=== PATIENT | female | born 1945 | race Caucasian/White ===

== ENCOUNTER 2016-12-02 20:27 | Emergency (ER) | payer OTHER ==
[2016-12-02] MEDS ORDERED: G.I. COCKTAIL PO ONE (20:54)
--- NOTE | 2016-12-02 20:59 | PROVIDER DOCUMENTATION ---
HPI-Chest Pain <Jeff Nielson - Last Filed: 12/02/16 22:09> - General Source: patient - History of Present Illness-CP Location: reports: substernal Chest Pain Radiation: reports: no radiation Quality of Pain: reports: aching, burning, dull Severity in ED: moderate Onset/Duration: this morning (0730) Timing: still present, constant Context/Activities at Onset: reports: moderate activity Associated Symptoms: reports: abdominal pain, heartburn. denies: back pain, diaphoresis, fatigue, headache, nausea, rash, shortness of breath, swelling/ lump in chest, syncope, vomiting, weakness <Migel Brower - Last Filed: 12/02/16 22:24> - General Chief Complaint: Chest Pain Stated Complaint: BURNING AND CHOKING SENSATION IN THROAT Time Seen by Provider: 12/02/16 20:38 Allergies/Adverse Reactions: Patient Allergies Allergy/AdvReac Type Severity Reaction Status Date / Time garlic Allergy RASH Verified 12/02/16 21:02 Sulfa (Sulfonamide Allergy RASH Verified 12/02/16 21:02 Antibiotics) Home Medications: Home Medication List Medication Instructions Recorded Confirmed Last Taken Type ATORVAstatin [Lipitor] 80 mg PO DAILY 12/02/16 12/02/16 12/02/16 History Buspirone HCl [Buspar] 5 mg PO BID 12/02/16 12/02/16 Unknown History Calcium Carbonate [Caltrate 600] 600 mg PO DAILY 12/02/16 12/02/16 Unknown History Chlorthalidone 25 mg PO DIRECTED 12/02/16 12/02/16 Unknown History Diltiazem [Cardizem] 30 mg PO BID 12/02/16 12/02/16 Unknown History Famotidine [Pepcid] 20 mg PO DAILY 12/02/16 12/02/16 12/02/16 History Losartan Potassium 50 mg PO DAILY 12/02/16 12/02/16 12/02/16 History [place]-3 Fatty Acids [Fish Oil] 300 mg PO DAILY 12/02/16 12/02/16 Unknown History Omeprazole 40 mg PO DAILY 12/02/16 12/02/16 12/02/16 History Vitamin E 1,000 unit PO DAILY 12/02/16 12/02/16 Unknown History - History of Present Illness-CP Nature of Presenting Problem: Pt is a 71 yof who presents to ER with CC of C/P with onset of 0730 this am. Pt describes pain as a dull/achy/burning sensation in her chest and makes her feel as though she has something stuck in her throat. Pt does report hx of GERD and said that she took x2 pepsid and x1 of prilosec without result. Pt denies any pain radiating anywhere else, denies N/V/D/cough/ or sob. Pt reports that she did have slight sob yesterday after exercising. Pt also reports that she has mildly swollen bilateral feet/ankles, but is normal for her and has not changed from baseline. (Migel Brower) Review of Systems - Adult - REVIEW OF SYSTEMS - ADULT Constitutional: denies: chills, fever, fatique, night sweats Eyes: reports: no symptoms reported Ears, Nose, Mouth & Throat: reports: no symptoms reported Cardiovascular: reports: chest pain, irregular heart rate (possible), palpitations (possible). denies: edema, heart murmur, orthopnea, poor circulation, PND, syncope Respiratory: reports: shortness of breath (yesterday; none today). denies: chronic cough, cough, dyspnea on exertion, excessive sputum production, hemoptysis, pleurisy, wheezing Gastrointestinal: reports: difficulty swallowing, frequent heartburn. denies: abdominal pain, hematemesis, constipation, diarrhea, nausea, poor appetite, rectal bleeding, vomiting Genitourinary: denies: dysuria, flank pain, frequent UTI's, hematuria, incontinence Musculoskeletal: reports: no symptoms reported Integumentary: reports: no symptoms reported Neurological: reports: no symptoms reported Psychiatric: reports: no symptoms reported Endocrine: reports: no symptoms reported Hematologic/Lymphatic: reports: no symptoms reported Allergic/Immunologic: reports: no symptoms reported All Other Systems: Reviewed and Negative <Migel Brower - Last Filed: 12/02/16 22:24> Past History - Adult - PAST MEDICAL HISTORY-ADULT Review of Records: reports: Nursing Assessment Review, Medications Reviewed Cardiovascular: reports: HTN, palpitations Gastrointestinal: reports: GERD - PRIOR SURGERIES/PROCEDURES Surgical/Procedure History: reports: hysterectomy, - IMMUNIZATION STATUS Childhood Immunizations: See Nurse Assessment Flu Vaccine: See Nurse Assessment <Migel Brower - Last Filed: 12/02/16 22:24> Physical Exam-General - PHYSICAL EXAM-ADULT Initial Vital Signs Reviewed: Yes - CONSTITUTIONAL General Appearance: appears well, alert, no apparent distress. negative: cachetic, obese, anxious, lethargic, slow to respond, obtunded, combative - RESPIRATORY Respiratory: chest non-tender, lungs clear, normal breath sounds. negative: respiratory distress, decreased breath sounds, accessory muscle use, crackles, rales, rhonchi, stridor, wheezing - CARDIOVASCULAR Cardiovascular: normal peripheral pulses, regular rate, rhythm. negative: bradycardia, tachycardia, irregularly irregular - GASTROINTESTINAL (ABDOMEN) Abdominal Exam: normal bowel sounds, non tender, soft. negative: abnormal bowel sounds, distended, guarding, rigid, rebound, tenderness, mass - SKIN Integumentary: normal color, normal turgor, warm/dry. negative: diaphoresis, ecchymosis, erythema, laceration(s), swelling, tenderness, warm - NEUROLOGIC Neurologic: grossly normal, no motor/sensory deficits - PSYCHIATRIC Psych/Mental Status: normal mood/affect, normal thought content, normal thought process, oriented x 3 <Migel Brower - Last Filed: 12/02/16 22:24> Progress - REASSESSMENT Reassessment #1 Time Reassessed: 22:09 (pain free after GI cocktail) Status: improving <Jeff Nielson - Last Filed: 12/02/16 22:09> - EKG 1 Time of EKG reading by physician:: 20:34 EKG Read and Signed by:: Jeff Nielson EKG Interpretation (*Must complete 3 of following elements*): Normal Rate: 76 Rhythm: Normal sinus rhythm <Migel Brower - Last Filed: 12/02/16 22:24> - PLAN OF CARE/RESULTS Progress/Plan/Lab Results: Laboratory Tests 12/02/16 12/02/16 12/02/16 21:15 21:15 21:15 WBC 4.80 RBC 3.74 L Hgb 11.7 L Hct 34.4 L MCV 92.0 MCH 31.3 H MCHC 34.0 RDW Std Deviation 12.7 Plt Count 189 MPV 10.3 Immature Gran % (Auto) 0.0 Neut % (Auto) 45.9 Lymph % (Auto) 40.8 [place] % (Auto) 10.6 H Eos % (Auto) 2.1 Baso % (Auto) 0.6 Immature Gran # (Auto) 0.00 Neut # (Auto) 2.20 Lymph # (Auto) 1.96 [place] # (Auto) 0.51 Eos # (Auto) 0.10 Baso # (Auto) 0.03 PT INR PTT (Actin FS) Sodium 140 Potassium 3.6 Chloride 101 Carbon Dioxide 25 Anion Gap 14 BUN 21 Creatinine 1.1 H Estimated GFR/1.73 m2 49 BUN/Creatinine Ratio 19 Glucose 99 Calculated Osmolality 282 Calcium 9.0 Magnesium 1.8 Total Bilirubin 0.34 AST 16 ALT 14 Alkaline Phosphatase 50 Creatine Kinase 81 Troponin T Eut-J-Fzhdfxnlbzh Pept 52 Total Protein 6.5 Albumin 4.0 Globulin 2.5 Albumin/Globulin Ratio 1.6 12/02/16 12/02/16 21:15 21:15 WBC RBC Hgb Hct MCV MCH MCHC RDW Std Deviation Plt Count MPV Immature Gran % (Auto) Neut % (Auto) Lymph % (Auto) [place] % (Auto) Eos % (Auto) Baso % (Auto) Immature Gran # (Auto) Neut # (Auto) Lymph # (Auto) [place] # (Auto) Eos # (Auto) Baso # (Auto) PT 10.4 INR 0.98 PTT (Actin FS) 25.8 Sodium Potassium Chloride Carbon Dioxide Anion Gap BUN Creatinine Estimated GFR/1.73 m2 BUN/Creatinine Ratio Glucose Calculated Osmolality Calcium Magnesium Total Bilirubin AST ALT Alkaline Phosphatase Creatine Kinase Troponin T < 0.010 Pea-V-Piqrbmrwhzl Pept Total Protein Albumin Globulin Albumin/Globulin Ratio Orders Category Date Time Status CBC WITH ELECTRONIC DIFF [HEME] Stat Lab 12/02/16 21:15 Completed CK PROFILE [SP CHEM] Stat Lab 12/02/16 21:15 Completed COMPREHENSIVE METABOLIC PANEL [CHEM] Stat Lab 12/02/16 21:15 Completed D-DIMER [CHEM] Stat Lab 12/02/16 21:15 Received MAGNESIUM [CHEM] Stat Lab 12/02/16 21:15 Completed PRO B-NATRIURETIC PEPTIDE Stat Lab 12/02/16 21:15 Completed PROTIME WITH INR [COAG] Stat Lab 12/02/16 21:15 Completed PTT [COAG] Stat Lab 12/02/16 21:15 Completed TROPONIN T Stat Lab 12/02/16 21:15 Completed [place] Alk/Al&mg Hydrox [G.i. Cocktail] Med 12/02/16 20:54 Discontinued 30 ml PO NOW ONE EKG [EKG] Stat Ther 12/02/16 20:29 Ordered Vital Signs Temp Pulse Resp BP Pulse Ox 12/02/16 20:36 98.3 F 74 18 150/63 99 garlic Allergy (Verified 12/02/16 21:02) RASH Sulfa (Sulfonamide Antibiotics) Allergy (Verified 12/02/16 21:02) RASH ATORVAstatin [Lipitor] 80 mg PO DAILY 12/02/16 Buspirone HCl [Buspar] 5 mg PO BID 12/02/16 Calcium Carbonate [Caltrate 600] 600 mg PO DAILY 12/02/16 Chlorthalidone 25 mg PO DIRECTED 12/02/16 Diltiazem [Cardizem] 30 mg PO BID 12/02/16 Famotidine [Pepcid] 20 mg PO DAILY 12/02/16 Losartan Potassium 50 mg PO DAILY 12/02/16 [place]-3 Fatty Acids [Fish Oil] 300 mg PO DAILY 12/02/16 Omeprazole 40 mg PO DAILY 12/02/16 Vitamin E 1,000 unit PO DAILY 12/02/16 Laboratory 12/02/16 12/02/16 12/02/16 21:15 21:15 21:15 WBC RBC Hgb Hct MCV MCH MCHC RDW Std Deviation Plt Count MPV Immature Gran % (Auto) Neut % (Auto) Lymph % (Auto) [place] % (Auto) Eos % (Auto) Baso % (Auto) Immature Gran # (Auto) Neut # (Auto) Lymph # (Auto) [place] # (Auto) Eos # (Auto) Baso # (Auto) PT 10.4 INR 0.98 PTT (Actin FS) 25.8 Sodium Potassium Chloride Carbon Dioxide Anion Gap BUN Creatinine Estimated GFR/1.73 m2 BUN/Creatinine Ratio Glucose Calculated Osmolality Calcium Magnesium Total Bilirubin AST ALT Alkaline Phosphatase Creatine Kinase Troponin T < 0.010 Pan-L-Cexpischvhf Pept 52 Total Protein Albumin Globulin Albumin/Globulin Ratio 12/02/16 12/02/16 21:15 21:15 WBC 4.80 RBC 3.74 L Hgb 11.7 L Hct 34.4 L MCV 92.0 MCH 31.3 H MCHC 34.0 RDW Std Deviation 12.7 Plt Count 189 MPV 10.3 Immature Gran % (Auto) 0.0 Neut % (Auto) 45.9 Lymph % (Auto) 40.8 [place] % (Auto) 10.6 H Eos % (Auto) 2.1 Baso % (Auto) 0.6 Immature Gran # (Auto) 0.00 Neut # (Auto) 2.20 Lymph # (Auto) 1.96 [place] # (Auto) 0.51 Eos # (Auto) 0.10 Baso # (Auto) 0.03 PT INR PTT (Actin FS) Sodium 140 Potassium 3.6 Chloride 101 Carbon Dioxide 25 Anion Gap 14 BUN 21 Creatinine 1.1 H Estimated GFR/1.73 m2 49 BUN/Creatinine Ratio 19 Glucose 99 Calculated Osmolality 282 Calcium 9.0 Magnesium 1.8 Total Bilirubin 0.34 AST 16 ALT 14 Alkaline Phosphatase 50 Creatine Kinase 81 Troponin T Xjf-B-Ksxcihcrbyv Pept Total Protein 6.5 Albumin 4.0 Globulin 2.5 Albumin/Globulin Ratio 1.6 (Jeff Nielson) POC: Blood work/ Chest X-ray/ GI cocktail Vital Signs - 24 hr 12/02/16 12/02/16 20:36 22:22 Temperature 98.3 F Pulse Rate 74 61 Respiratory 18 18 Rate Blood Pressure 150/63 133/62 O2 Sat by Pulse 99 100 Oximetry Orders Category Date Time Status CBC WITH ELECTRONIC DIFF [HEME] Stat Lab 12/02/16 21:15 Completed CK PROFILE [SP CHEM] Stat Lab 12/02/16 21:15 Completed COMPREHENSIVE METABOLIC PANEL [CHEM] Stat Lab 12/02/16 21:15 Completed D-DIMER [CHEM] Stat Lab 12/02/16 21:15 Received MAGNESIUM [CHEM] Stat Lab 12/02/16 21:15 Completed PRO B-NATRIURETIC PEPTIDE Stat Lab 12/02/16 21:15 Completed PROTIME WITH INR [COAG] Stat Lab 12/02/16 21:15 Completed PTT [COAG] Stat Lab 12/02/16 21:15 Completed TROPONIN T Stat Lab 12/02/16 21:15 Completed [place] Alk/Al&mg Hydrox [G.i. Cocktail] Med 12/02/16 20:54 Discontinued 30 ml PO NOW ONE EKG [EKG] Stat Ther 12/02/16 20:29 Ordered Laboratory Tests 12/02/16 12/02/16 12/02/16 21:15 21:15 21:15 WBC 4.80 RBC 3.74 L Hgb 11.7 L Hct 34.4 L MCV 92.0 MCH 31.3 H MCHC 34.0 RDW Std Deviation 12.7 Plt Count 189 MPV 10.3 Immature Gran % (Auto) 0.0 Neut % (Auto) 45.9 Lymph % (Auto) 40.8 [place] % (Auto) 10.6 H Eos % (Auto) 2.1 Baso % (Auto) 0.6 Immature Gran # (Auto) 0.00 Neut # (Auto) 2.20 Lymph # (Auto) 1.96 [place] # (Auto) 0.51 Eos # (Auto) 0.10 Baso # (Auto) 0.03 PT INR PTT (Actin FS) Sodium 140 Potassium 3.6 Chloride 101 Carbon Dioxide 25 Anion Gap 14 BUN 21 Creatinine 1.1 H Estimated GFR/1.73 m2 49 BUN/Creatinine Ratio 19 Glucose 99 Calculated Osmolality 282 Calcium 9.0 Magnesium 1.8 Total Bilirubin 0.34 AST 16 ALT 14 Alkaline Phosphatase 50 Creatine Kinase 81 Troponin T Xtf-G-Jzxpnunmjej Pept 52 Total Protein 6.5 Albumin 4.0 Globulin 2.5 Albumin/Globulin Ratio 1.6 12/02/16 12/02/16 21:15 21:15 WBC RBC Hgb Hct MCV MCH MCHC RDW Std Deviation Plt Count MPV Immature Gran % (Auto) Neut % (Auto) Lymph % (Auto) [place] % (Auto) Eos % (Auto) Baso % (Auto) Immature Gran # (Auto) Neut # (Auto) Lymph # (Auto) [place] # (Auto) Eos # (Auto) Baso # (Auto) PT 10.4 INR 0.98 PTT (Actin FS) 25.8 Sodium Potassium Chloride Carbon Dioxide Anion Gap BUN Creatinine Estimated GFR/1.73 m2 BUN/Creatinine Ratio Glucose Calculated Osmolality Calcium Magnesium Total Bilirubin AST ALT Alkaline Phosphatase Creatine Kinase Troponin T < 0.010 Fjf-J-Wslicmcfofl Pept Total Protein Albumin Globulin Albumin/Globulin Ratio (Migel Brower) Departure - Departure Time of Disposition Order: 22:10 <Jeff Nielson - Last Filed: 12/02/16 22:09> - Departure Time of Disposition Order: 22:24 Certified Medical Emergency: Emergent <Migel Brower - Last Filed: 12/02/16 22:24> - Departure DIAGNOSIS: GERD (gastroesophageal reflux disease) Qualifiers: Esophagitis presence: esophagitis presence not specified Qualified Code(s): K21.9 - Gastro-esophageal reflux disease without esophagitis Disposition: OTHER 70 Condition: Good Additional Instructions: ED Follow Up Instructions: You have been treated by a care provider in the Emergency Department. These instructions are being provided to you so you can have an understanding of how to care for yourself upon discharge. Upon discharge from the Emergency Department, you are responsible for making arrangements for follow-up care by a physician of your choice. Take all prescribed medications as directed. Return to the Emergency Department immediately for any new or worsening symptoms. You may call the Physician Referral phone number at [phone] to obtain a list of Physicians who are taking new patients. Referrals: Gm Arias MD [Primary Care Provider] - Instructions: Heartburn, Suwe-cy-Asix Attestation - Scribe Verification/Attestation Scribe:: Migel Brower Acting as Scribe for:: Jeff Nielson Scribe documention review:: This chart was documented by a scribe and accurately reflects the service the provider performed and the decisions made by the provider. <Migel Brower - Last Filed: 12/02/16 22:24> Physician Attestation
[2016-12-02 21:33] LABS: MANUAL DIFF NEEDED? NO
[2016-12-02 21:40] LABS: BASO% 0.6 % (0.0-0.8); EOS% 2.1 % (0.0-10.0); HEMATOCRIT 34.4 % (37.0-47.0); HEMOGLOBIN 11.7 g/dL (12.0-16.0); LYMPH# 1.96 X1000 (1.2-3.4); LYMPH% 40.8 % (20.5-51.1); MCH 31.3 PG (27-31); MONO# 0.51 X1000 (0.11-0.59); MONO% 10.6 % (1.7-9.3); MPV 10.3 FL (7.4-10.4); NEUT% 45.9 % (42.2-75.2); PLT 189 X1000 (130-400); RBC 3.74 XMIL (4.2-5.4)
[2016-12-02 21:55] LABS: MAGNESIUM 1.8 mg/dL (1.5-2.7); POTASSIUM 3.6 mmol/L (3.5-5.1); TOTAL BILIRUBIN 0.34 mg/dL (0.20-1.00); TOTAL PROTEIN 6.5 g/dL (6.3-8.3)
[2016-12-02 22:06] LABS: INR 0.98; PROTIME 10.4 Seconds (9.2-11.7); PTT 25.8 Seconds (22.0-36.0)
[2016-12-02 22:23] VITALS: BP 133/62
--- NOTE | 2016-12-05 08:13 | EKG Report ---
Test Performed on : 12/02/2016 8:34:43 PM Test Reason : CP Blood Pressure : / mmHG Vent. Rate : 076 BPM Atrial Rate : 076 BPM P-R Int : 188 ms QRS Dur : 098 ms QT Int : 392 ms P-R-T Axes : 074 004 070 degrees QTc Int : 441 ms Normal sinus rhythm. Normal ECG When compared with ECG of 28-FEB-2015 21:45, Vent. rate has decreased BY 42 BPM Nonspecific T wave abnormality now evident in Anterior leads Unconfirmed Result
== END 2016-12-02 22:24 | disposition home or self-care (01) ==
LOC: ED 20:27
DX: K21.9 Gastro-esophageal reflux disease without esophagitis (principal); R07.89 Other chest pain; R10.9 Unspecified abdominal pain; R12 Heartburn; R09.89 Other specified symptoms and signs involving the circulatory and respiratory systems; R06.02 Shortness of breath; R13.10 Dysphagia, unspecified; I10 Essential (primary) hypertension; Z79.899 Other long term (current) drug therapy
CPT/HCPCS: 80053; 82550; 83735; 83880; 84484; 85025; 85379; 85610; 85730; 93005

== ENCOUNTER 2019-12-31 07:39 | Inpatient (IN) ==
[2019-12-31] MEDS ORDERED: ASPIRIN PO ONE (07:52)
[2019-12-31] MEDS ORDERED: CARDIZEM IV ONE ×2 (07:52→09:29)
--- NOTE | 2019-12-31 08:17 | EKG Report ---
Test Performed on : 12/31/2019 07:49:19 AM Test Reason : palp Blood Pressure : / mmHG Vent. Rate : 165 BPM Atrial Rate : 187 BPM P-R Int : 000 ms QRS Dur : 088 ms QT Int : 290 ms P-R-T Axes : 000 038 078 degrees QTc Int : 480 ms Atrial fibrillation. with rapid ventricular response. Nonspecific ST abnormality Abnormal ECG When compared with ECG of 02-DEC-2016 20:34, Atrial fibrillation. has replaced Sinus rhythm. Vent. rate has increased BY [address] now depressed in Anterior leads T wave inversion now evident in Anterolateral leads Unconfirmed Result
[2019-12-31] MEDS ORDERED: LOVENOX 1 MG/KG SUBQ ONE (08:20)
--- NOTE | 2019-12-31 08:21 | Diag Imaging Result Doc PS360 ---
CHEST-PORTABLE - 12/31/2019 INDICATION: sob COMPARISON: None FINDINGS: The lungs are normally expanded and clear. Heart size and mediastinal contours are normal. No pneumothorax or pleural effusion. IMPRESSION: Negative exam. Electronically signed by Jasson Levin 12/31/2019 8:19 AM
--- NOTE | 2019-12-31 08:23 | PROVIDER DOCUMENTATION ---
HPI-Cardiac General - General Chief Complaint: Palpitations Stated Complaint: HIGH HEART RATE Time Seen by Provider: 12/31/19 07:46 Allergies/Adverse Reactions: Patient Allergies Allergy/AdvReac Type Severity Reaction Status Date / Time garlic Allergy RASH Verified 12/31/19 08:25 lisinopril Allergy DRY COUGH Verified 12/31/19 08:25 Sulfa (Sulfonamide Allergy RASH Verified 12/31/19 08:25 Antibiotics) Home Medications: Home Medication List Medication Instructions Recorded Confirmed Last Taken Type ATORVAstatin [Lipitor] 80 mg PO DAILY 12/02/16 12/31/19 12/30/19 History Buspirone HCl [Buspar] 5 mg PO BID 12/02/16 12/31/19 12/30/19 History Calcium Carbonate [Caltrate 600] 600 mg PO DAILY 12/02/16 12/31/19 12/30/19 History Losartan Potassium 50 mg PO DAILY 12/02/16 12/31/19 12/30/19 History [place]-3 Fatty Acids [Fish Oil] 4 cap PO DAILY 12/02/16 12/31/19 12/30/19 History Omeprazole 40 mg PO DAILY 12/02/16 12/31/19 12/30/19 History Vitamin E 400 unit PO DIRECTED 12/02/16 12/31/19 12/30/19 History Ciprofloxacin HCl [Cipro] 1 tab PO BID 12/31/19 12/31/19 12/30/19 History Cyanocobalamin (Vitamin B-12) 1,000 mg pe PO DAILY 12/31/19 12/31/19 12/30/19 History [Vitamin B12] Diltiazem HCl [Dilt-Xr] 1 cap PO DAILY 12/31/19 12/31/19 12/30/19 History Metoprolol Succinate 1 tab PO DAILY 12/31/19 12/31/19 12/30/19 History Metronidazole [Flagyl] 1 tab PO BID 12/31/19 12/31/19 12/30/19 History Spironolact/Hydrochlorothiazid 1 tab PO DAILY 12/31/19 12/31/19 12/30/19 History [Spironolactone-Hctz 25-25 Tab] - History of Present Illness-Cardiac Nature of Presenting Problem: 74 yo female, history of palpitations, but no diagnosis of AFIB, sees Dr. Figueroa, recently seen by him and had diltiazem dose dropped from 180mg daily to 120mg daily c/o palpitations and weakness intermittent for the last 4-5 days, but getting slowly worse. Denies CP or SOB or diaphoresis. No cough, fever/ch ills. No known infectious exposures or travel recently. Location: reports: other (no pain) Quality of Pain: reports: none Severity in ED: moderate Onset/Duration: 5 days ago Timing: still present, intermittent, changing over time, getting worse Context/Activities at Onset: reports: light activity Modifying Factors: improves with: nothing. worse with: exercise Palpitation Quality: fast/pounding heart beat History of arrythmia: reports: other (palpitations only.). denies: A-Fib Recent use of:: reports: no stimulants Nitro Today/Relief: reports: no nitro taken today Aspirin Treatment Today: reports: 81 mg x 1 Prior Chest Pain/Cardiac Workup: reports: non-cardiac, cardiolite scan, echocardiography, stress test Associated Symptoms: reports: weakness Similar Symptoms Previously?: Yes (but not for this long) Recently Seen Here or By Another Healthcare Provider: Yes (Dr. Herrera for cardiac eval) Review of Systems - Adult - REVIEW OF SYSTEMS - ADULT Constitutional: reports: no symptoms reported Eyes: reports: no symptoms reported Ears, Nose, Mouth & Throat: reports: no symptoms reported Cardiovascular: reports: see HPI, palpitations. denies: chest pain, edema, heart murmur, irregular heart rate, orthopnea, poor circulation, PND, syncope Respiratory: reports: no symptoms reported Gastrointestinal: reports: no symptoms reported Genitourinary: reports: no symptoms reported Musculoskeletal: reports: no symptoms reported Integumentary: reports: no symptoms reported Neurological: reports: no symptoms reported Psychiatric: reports: no symptoms reported Endocrine: reports: no symptoms reported Hematologic/Lymphatic: reports: no symptoms reported Allergic/Immunologic: reports: no symptoms reported All Other Systems: Reviewed and Negative Past History - Adult - PAST MEDICAL HISTORY-ADULT Review of Records: reports: Old Records Reviewed, Nursing Assessment Review, Medications Reviewed, Social history reviewed & non-contributory. Major Childhood Illnesses: reports: denies history Cardiovascular: reports: HTN, palpitations Respiratory: reports: denies history Gastrointestinal: reports: GERD Obstetrical/Gynecological: reports: denies history Genitourinary: reports: denies history Musculoskeletal: reports: denies history Neurological: reports: denies history Endocrine/Immune: reports: denies history Other Conditions: reports: denies history - PRIOR SURGERIES/PROCEDURES Surgical/Procedure History: reports: hysterectomy, - IMMUNIZATION STATUS Childhood Immunizations: See Nurse Assessment Flu Vaccine: See Nurse Assessment - FAMILY HISTORY Family History: CAD over 55 yo - SOCIAL HISTORY Smoking: non-smoker Substance Use: none/never Alcohol Use Frequency: never Living Situation: family Physical Exam-General - PHYSICAL EXAM-ADULT Initial Vital Signs Reviewed: Yes (Tachycardic, otherwise normal) - CONSTITUTIONAL General Appearance: appears well, alert, no apparent distress - EYES Eyes: PERRL/EOMI, pink conjunctivae - HEAD, EARS, NOSE, MOUTH & THROAT HENMT: normocephalic/atraumatic, moist mucous membranes, normal ENT inspection - NECK Neck: full range of motion, supple, normal inspection - RESPIRATORY Respiratory: chest non-tender, lungs clear, normal breath sounds, no pleuratic chest pain, no respiratory distress - CARDIOVASCULAR Cardiovascular: normal peripheral pulses, no edema, no JVD, no murmur, tachycardia, gallop/S4, irregularly irregular. negative: regular rate, rhythm, no gallop - GASTROINTESTINAL (ABDOMEN) Abdominal Exam: non tender, soft. negative: distended - LYMPHATIC Lymphatic: no adenopathy - MUSCULOSKELETAL Back Exam: normal inspection, no vertebral tenderness. 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 nml as tested, grossly normal, no motor/sensory deficits - PSYCHIATRIC Psych/Mental Status: normal mood/affect, normal thought content, normal thought process, oriented x 3 - HEART Score HEART Score: History: Slightly Suspicious HEART Score: ECG: Non-Specific Repolarization Disturbance/LBBB/PM HEART Score: Age: > or = 65 Years HEART Score: Risk Factors for Atherosclerotic Disease: 1 or 2 Risk Factors HEART Score: Troponin: < or = Normal Limit Total HEART Score:: 4 Progress - PLAN OF CARE/RESULTS Progress/Plan/Lab Results: Vital Signs - 8 hr 12/31/19 07:44 Temperature 98.7 F Pulse Rate 144 H Respiratory Rate 18 Blood Pressure 144/80 O2 Sat by Pulse Oximetry 99 Laboratory Results - last 24 hr 12/31/19 12/31/19 12/31/19 08:05 08:05 08:05 WBC RBC Hgb Hct MCV MCH MCHC RDW Std Deviation Plt Count MPV Immature Gran % (Auto) Neut % (Auto) Lymph % (Auto) [place] % (Auto) Eos % (Auto) Baso % (Auto) Immature Gran # (Auto) Neut # (Auto) Lymph # (Auto) [place] # (Auto) Eos # (Auto) Baso # (Auto) PT INR PTT (Actin FS) Sodium 134 L Potassium 3.3 L Chloride 97 L Carbon Dioxide 22 L Anion Gap 15 BUN 16 Creatinine 1.0 H Estimated GFR/1.73 m2 54 BUN/Creatinine Ratio 16 Glucose 108 H Calculated Osmolality 270 Calcium 9.3 Magnesium 1.7 Total Bilirubin 0.50 AST 24 ALT 17 Alkaline Phosphatase 59 Creatine Kinase 73 Troponin T High Sens Xis-P-Aiovsofmsmz Pept 67 Total Protein 6.7 Albumin 4.4 Globulin 2.3 Albumin/Globulin Ratio 1.9 Plasma Lactate TSH 1.08 12/31/19 12/31/19 12/31/19 08:05 08:05 08:05 WBC 5.84 RBC 4.23 Hgb 13.2 Hct 39.2 MCV 92.7 MCH 31.2 H MCHC 33.7 RDW Std Deviation 13.0 Plt Count 202 MPV 10.5 H Immature Gran % (Auto) 0.0 Neut % (Auto) 61.8 Lymph % (Auto) 28.9 [place] % (Auto) 8.2 Eos % (Auto) 0.9 Baso % (Auto) 0.2 Immature Gran # (Auto) 0.00 Neut # (Auto) 3.61 Lymph # (Auto) 1.69 [place] # (Auto) 0.48 Eos # (Auto) 0.05 Baso # (Auto) 0.01 PT 13.2 INR 0.99 PTT (Actin FS) 25.5 Sodium Potassium Chloride Carbon Dioxide Anion Gap BUN Creatinine Estimated GFR/1.73 m2 BUN/Creatinine Ratio Glucose Calculated Osmolality Calcium Magnesium Total Bilirubin AST ALT Alkaline Phosphatase Creatine Kinase Troponin T High Sens 15 Iaf-M-Nummtduqgyj Pept Total Protein Albumin Globulin Albumin/Globulin Ratio Plasma Lactate TSH 12/31/19 08:05 WBC RBC Hgb Hct MCV MCH MCHC RDW Std Deviation Plt Count MPV Immature Gran % (Auto) Neut % (Auto) Lymph % (Auto) [place] % (Auto) Eos % (Auto) Baso % (Auto) Immature Gran # (Auto) Neut # (Auto) Lymph # (Auto) [place] # (Auto) Eos # (Auto) Baso # (Auto) PT INR PTT (Actin FS) Sodium Potassium Chloride Carbon Dioxide Anion Gap BUN Creatinine Estimated GFR/1.73 m2 BUN/Creatinine Ratio Glucose Calculated Osmolality Calcium Magnesium Total Bilirubin AST ALT Alkaline Phosphatase Creatine Kinase Troponin T High Sens Vkt-T-[id number] Pept Total Protein Albumin Globulin Albumin/Globulin Ratio Plasma Lactate 1.3 TSH Orders Category Date Time Status Cardiac Monitoring DIRECTED Care 12/31/19 07:53 Active NEWS Score 2-4:Order NEWS Lactate Series NOW Care 12/31/19 07:56 Active Nursing- Obtain EKG once Care 12/31/19 09:26 Active Oxygen Therapy- ED Nursing DIRECTED Care 12/31/19 07:53 Active Saline Loc NOW Care 12/31/19 07:53 Active Physician/Provider Consults Stat Cons 12/31/19 09:32 Ordered CHEST-PORTABLE [RAD] Stat Exams 12/31/19 07:53 Completed CBC WITH ELECTRONIC DIFF [HEME] Stat Lab 12/31/19 08:05 Completed CK PROFILE [SP CHEM] Stat Lab 12/31/19 08:05 Completed COMPREHENSIVE METABOLIC PANEL [CHEM] Stat Lab 12/31/19 08:05 Completed LACTATE, PLASMA [CHEM] Lab 12/31/19 08:05 Completed MAGNESIUM [CHEM] Stat Lab 12/31/19 08:05 Completed PRO B-NATRIURETIC PEPTIDE Stat Lab 12/31/19 08:05 Completed PROTIME WITH INR [COAG] Stat Lab 12/31/19 08:05 Completed PTT [COAG] Stat Lab 12/31/19 08:05 Completed TROPONIN T HIGH SENSITIVITY Stat Lab 12/31/19 08:05 Completed TROPONIN T HIGH SENSITIVITY Stat Lab 12/31/19 09:27 Uncollected TSH Stat Lab 12/31/19 08:05 Completed Aspirin Med 12/31/19 07:52 Discontinued 325 mg PO NOW ONE Diltiazem 100 mg/Ns [Cardizem 100 mg/Ns] Med 12/31/19 09:30 Ordered 100 mg in 100 ml IV As Directed mls/hr Diltiazem [Cardizem] Med 12/31/19 07:52 Discontinued 20 mg IV NOW ONE Diltiazem [Cardizem] Med 12/31/19 09:29 Discontinued 20 mg IV NOW ONE Enoxaparin 1 mg/kg [Lovenox 1 mg/kg] Med 12/31/19 08:20 Discontinued 1 each SUBQ NOW ONE Enoxaparin [Lovenox] Med 12/31/19 09:30 Discontinued 60 mg SUBQ NOW ONE Metoprolol [Lopressor] Med 12/31/19 08:46 Discontinued 25 mg PO NOW ONE Potassium Chloride E.r. [Klor-Con] Med 12/31/19 09:33 Once 20 meq PO NOW ONE CP/SOB/Palp >45 yrs of Age Stat Oth 12/31/19 07:53 Ordered EKG [EKG] Stat Ther 12/31/19 07:53 Draft EKG [EKG] Stat Ther 12/31/19 09:26 Ordered Result Diagrams: 12/31/19 08:05 12/31/19 08:05 - REASSESSMENT Reassessment #1 Time Reassessed: 09:33 Status: improving (Patient initially dropped to 90s with 1 dose of cardizem IV and metoprolol 25 po, however, rate increased up to 140s again. Rebolused with iV cardizem and drip started. Also given ASA and SQ enoxaparin as she is not anticoagulated. States she feels better) - EKG 1 Time of EKG reading by physician:: 07:51 EKG Read and Signed by:: Giovani Mccoy EKG Interpretation (*Must complete 3 of following elements*): Abnormal Rate: 165 Rhythm: Afib with RVR [place]: normal QRS: LVH ST Wave: non-specific ST changes Prior EKG Comparison: changes noted (NSR on all prior EKGs in [facility]) - CONSULTS/PCP/HOSPITALIST Notification #1 *Consult/PCP/Hospitalist*: SHAWNA Mayers Time Discussed: 09:35 Consult Disposition: Will see in ED, Admit #2 Consult: Miriam, cardiology, paged at 0930 Departure - Departure Date of Disposition Decision: 12/31/19 Time of Disposition Decision: 09:35 DIAGNOSIS: Atrial fibrillation with rapid ventricular response, Hypokalemia Disposition: ADMITTED INPATIENT 09 Certified Medical Emergency: Emergent Condition: Fair Referrals and Follow-Ups: Gm Arias MD [Primary Care Provider] - - Critical Care Note This patient required my direct & personal management of CC.: Yes Total Time (mins): 38 Critical Care Statement: This patient required my direct personal management to treat or rule out processes, the absence of which, could potentiallly result in sudden, clinically significant life or limb threatening deterioration. Attestation - Physician/ MARTÍN Attestation Patient care was provided by Advanced Practice Provider:: No The physician spent face to face time with patient:: Yes Advanced Practice Provider documentation review:: Supervising physician onsite and consulted in the evaluation and care of this patient. The physician did have a face to face encounter with the patient.
[2019-12-31 08:44] LABS: BASO# 0.01 X1000 (0.0-0.2); BASO% 0.2 % (0.0-0.8); EOS# 0.05 X1000 (0.0-0.7); EOS% 0.9 % (0.0-10.0); HEMATOCRIT 39.2 % (37.0-47.0); HEMOGLOBIN 13.2 g/dL (12.0-16.0); LYMPH# 1.69 X1000 (1.2-3.4); LYMPH% 28.9 % (20.5-51.1); MCH 31.2 PG (27-31); MCHC 33.7 g/dL (33-37); MCV 92.7 FL (81-99); MONO# 0.48 X1000 (0.11-0.59); MONO% 8.2 % (1.7-9.3); MPV 10.5 FL (7.4-10.4); NEUT# 3.61 X1000 (1.4-6.5); NEUT% 61.8 % (42.2-75.2); PLT 202 X1000 (130-400); RBC 4.23 XMIL (4.2-5.4); WBC 5.84 X1000 (4.8-10.8)
[2019-12-31] MEDS ORDERED: LOPRESSOR PO ONE (08:46)
[2019-12-31 08:52] LABS: INR 0.99; PROTIME 13.2 Seconds (11.0-16.0)
[2019-12-31 08:53] LABS: PTT 25.5 Seconds (22.3-41.8)
[2019-12-31 09:03] LABS: ALB/GLOB RATIO 1.9; ALBUMIN 4.4 g/dL (3.5-5.0); CALCIUM 9.3 mg/dL (8.8-10.2); MAGNESIUM 1.7 mg/dL (1.5-2.7); POTASSIUM 3.3 mmol/L (3.5-5.1); TOTAL BILIRUBIN 0.5 mg/dL (0.20-1.00); TOTAL PROTEIN 6.7 g/dL (6.3-8.3)
[2019-12-31] MEDS ORDERED: CARDIZEM 100 MG/NS 100 MG/100 ML IVPB IV SCH (09:30)
[2019-12-31] MEDS ORDERED: LOVENOX SUBQ ONE (09:30)
[2019-12-31] MEDS ORDERED: KLOR-CON PO ONE ×2 (09:33→11:02)
[2019-12-31] MEDS ORDERED: TYLENOL PO PRN (09:41)
[2019-12-31] MEDS ORDERED: ZOFRAN IV PRN (09:41)
[2019-12-31] MEDS ORDERED: OMEGA PO SCH (09:45)
[2019-12-31] MEDS ORDERED: TOPROL XL PO SCH (09:45)
[2019-12-31] MEDS: VITAMIN B-12 PO SCH (10:54)
[2019-12-31] MEDS: CALTRATE 600 PO SCH (10:54)
[2019-12-31] MEDS: PRILOSEC PO SCH (10:54)
--- NOTE | 2019-12-31 11:00 | EKG Report ---
Test Performed on : 12/31/2019 10:00:21 AM Test Reason : repeat Blood Pressure : / mmHG Vent. Rate : 071 BPM Atrial Rate : 071 BPM P-R Int : 208 ms QRS Dur : 090 ms QT Int : 362 ms P-R-T Axes : 076 -01 059 degrees QTc Int : 393 ms Normal sinus rhythm. Normal ECG When compared with ECG of 31-DEC-2019 07:49, (Unconfirmed) Sinus rhythm. has replaced Atrial fibrillation. Vent. rate has decreased BY [address] no longer depressed in Anterolateral leads T wave inversion no longer evident in Anterolateral leads Unconfirmed Result
--- NOTE | 2019-12-31 11:19 | HISTORY AND PHYSICAL ---
PRIMARY CARE PROVIDER: Dr. Arias. PRIMARY INDUSTRIAL COOK: Dr. Figueroa. CHIEF COMPLAINT: Palpitations. HISTORY OF PRESENT ILLNESS: Ms. Manuela Osman is a 74-year-old, female with a medical history of, I believe, paroxysmal palpitation, GERD, hypertension, anxiety, who states that a little over a month ago, she had a spell where her heart rate dropped down to the 40s. She states that she was taking metoprolol in the morning and Cardizem at night, or vice versa, and then had decided to start taking them both at the same time at night. That is when her heart rate started dropping to the 40s. Dr. Arias dropped her metoprolol from 25 [address] Figueroa dropped her diltiazem from 180 to 120, according to her. She states that since then, she has been having issues where her heart rate has been going up and down for the past month but had been more frequent over the last week and then around 5:30 this morning, her heart rate went up and she just became much more weak. There are really no other symptoms that came with it other than severe weakness and fatigue that she fell from it. She got here. The heart rate was up to about 160s. She received Lovenox, potassium for her potassium level of 3.3, 25 of metoprolol, aspirin, two doses of 20 mg of IV diltiazem, and then was initiated on a drip. After all that, she did finally convert to a rate in the 70s and 80s. Cardiology is consulted. We will monitor her on PVC for any further heart rhythm changes. She does state that she has been having issues with a decreased appetite and some mild abdominal tenderness. She claims she has had a 5 pound weight loss in the last 2 weeks. Really was not having any issues with her bowel movements but had called her primary on Monday who started her on Levaquin and Flagyl. Then she started having diarrhea. She is a little bit tender in the left lower quadrant with palpation, so we will order an x-ray to evaluate that. We will hold off on giving the Levaquin and Flagyl for now. PAST MEDICAL HISTORY: 1. Paroxysmal palpitation. 2. GERD. 3. Hypertension. 4. Iron deficiency anemia. 5. Hyperlipidemia. 6. Anxiety with panic attacks. 7. Thyroid nodule. SURGICAL HISTORY: 1. Hysterectomy. 2. Three sections. 3. Hemorrhoidectomy. SOCIAL HISTORY: Denies tobacco, alcohol, and illicit drug use. with 3 adult children. 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 FAMILY HISTORY: Mother had diabetes and coronary disease. Father when she was young from TB and pneumonia. ALLERGIES: Garlic, lisinopril, and sulfa. HOME MEDICATIONS: 1. BuSpar 5 mg p.o. twice daily. 2. Caltrate 600 mg p.o. daily. 3. Cipro 500 mg p.o. twice daily. 4. Diltiazem 120 mg p.o. daily. 5. Fish oil daily. 6. Flagyl 500 mg p.o. twice daily. 7. Lipitor 80 mg p.o. daily. 8. Losartan 50 mg p.o. daily. 9. Toprol 25 mg p.o. daily. Actually, I believe she had been dropped down to 12.5 mg daily, according to her. 10. Omeprazole 40 mg p.o. daily. 11. Spironolactone/hydrochlorothiazide 25/25 one tablet p.o. daily. 12. Vitamin B12 at 1000 mcg p.o. daily. 13. Vitamin E 400 as directed. REVIEW OF SYSTEMS: Fourteen point review of systems are complete and all were negative except for those mentioned above in the HPI. PHYSICAL EXAMINATION: VITAL SIGNS: Temperature 98.6 degrees, heart rate 62, respiratory rate 20, blood pressure 151/70, O2 saturation 99% on room air. GENERAL: Ms. Manuela Osman is a 74-year-old, female. She is in no acute distress. She is able answer questions appropriately. HEENT: Atraumatic, normocephalic. Pupils equal, round, reactive to light. Extraocular movements intact. Mucous membranes are moist. NECK: Trachea midline. CARDIOVASCULAR: S1, S2. Regular rate and rhythm. No rubs, gallops, or murmurs. This is secondary to her converting just prior to being assessed. No lower extremity edema. There are +2 dorsalis and radial pulses. Negative JVD or carotid bruits. PULMONARY: Clear to auscultate bilateral breath sounds. No accessory muscle use or work of breathing noted. GI: Soft. Tender in the left lower quadrant. Positive bowel sounds x4. EXTREMITIES: Moves all extremities equally. Full range of motion. NEUROLOGIC: A and O x3. Follows commands. Sensory is intact. SKIN: Warm, dry, intact. LABORATORY DATA: White blood cells 5000, hemoglobin 13, hematocrit 39, platelet count 202,000. INR is 0.99, PTT is 25.5. Sodium 134, potassium 3.3, BUN 16, creatinine is 1.0, glucose 108, calcium 9.3, magnesium 1.7. Bilirubin 0.50, AST 24, ALT 17. CK is 73, troponin 17, proBNP 67. Albumin is 4.4, lactate 1.3. TSH 1.08. IMAGING: Chest x-ray, negative exam. First EKG, atrial fibrillation with a rapid ventricular response, rate of 165. Repeat EKG at 10 a.m. after she converted was normal sinus rhythm, rate 71, QTc was 393. ASSESSMENT/PLAN: 1. Presented with atrial fibrillation with rapid ventricular response, with history of paroxysmal palpitation, on metoprolol and Cardizem at home. Around a month ago, these doses were decreased. The metoprolol was decreased from 25 mg to 12.5 mg by mouth daily. The Cardizem was decreased from 180 mg down to 120 mg a day. She has been having some on and off issues with palpitations over the last month. The only other symptom she has really with it is just severe weakness and fatigue it causes so she was ordered for a Cardizem drip. However, she has converted after receiving intravenous push, total of 40 mg diltiazem and 25 mg of oral metoprolol. She has been initiated on weight based Lovenox and cardiology has been consulted. 2. Complaints of gastrointestinal symptoms, possibly constipation. She was initiated on Levaquin and Flagyl on Monday. We will hold those for now. Get abdominal x-ray. She claims to have had a 5 pound weight loss in the last 2 weeks and that she is not hungry. 3. Gastroesophageal reflux disease. Continue Prilosec. 4. Hypertension. Toprol has been continued. Holding on other medications for now, the losartan and hydrochlorothiazide, spironolactone. 5. Hyperlipidemia. Continue statin. 6. Anxiety. Continue BuSpar. 7. History of iron deficiency anemia. We will continue vitamin B12. 8. Deep venous thrombosis prophylaxis. She is currently on weight based Lovenox. Dictated by SHAWNA Romero for Luis Angel Goldsmith MD cc: SHAWNA Romero MD I agree with most components of history, physical, assessment and plan. A separate addendum has been dictated. MTDD
--- NOTE | 2019-12-31 12:27 | CARDIOLOGY CONSULTATION ---
DATE: 12/31/2019 REASON FOR CONSULTATION: Cardiology was consulted for atrial fibrillation. CHIEF COMPLAINT: Palpitations. HISTORY OF PRESENT ILLNESS: Ms. Manuela Osman is a 74-year-old, lady with history of hypertension, gastroesophageal reflux disease, and palpitations. She was seen today. She has been having increasing episodes of palpitations. A week back, she had palpitations which lasted for about 5 to 10 minutes. However, the frequency has increased over the last 3 to 4 months. Today, before admission, she felt increasing palpitations. Came to the emergency room, was noted to be in atrial fibrillation with rapid ventricular rate, was started on a Cardizem drip. She converted to sinus rhythm. Currently, she is in sinus rhythm. In the past, she has had problems with multiple medications and her heart rate having dropped she says to the 40s. At that time, she was on a combination of Cardizem and metoprolol. Those doses were adjusted. However, the diagnosis of atrial fibrillation is new. She has not been told that she has had atrial fibrillation before. She also has thyroid issues with goiter. She denies any chest pain. There is no orthopnea or paroxysmal nocturnal dyspnea. She is otherwise active. She is being treated for a urinary tract infection and is on antibiotics for the same. She has been taking Levaquin and Flagyl for the urinary tract infection. PAST MEDICAL HISTORY: 1. Palpitations. 2. History of having had second-degree Mobitz type 2 in the past. 3. Hypertension. 4. Hyperlipidemia. 5. Gastroesophageal reflux disease. 6. Goiter. 7. Iron deficiency anemia. 8. Hysterectomy. 9. Hemorrhoidectomy. 10. Gastroesophageal reflux disease. 11. The last CT angiogram in 2018 was unremarkable with a calcium score of 5.4. Last ejection fraction couple of years back was a normal ejection fraction. SOCIAL HISTORY: She denies any tobacco or alcohol abuse. FAMILY HISTORY: Mother had diabetes and coronary artery disease. ALLERGIES: She is allergic to garlic, lisinopril, and sulfonamides. PHYSICAL EXAMINATION: Vital Signs: Blood pressure was 130/80. Cardiovascular System: Normal jugular venous pressure. There was no thyromegaly. There was no carotid bruit. First and second heart sounds were heard. There is no S3, S4, or gallop. Respiratory System: Normal air entry. There were no crepitations or rhonchi. Abdomen: Soft, nontender. There was no guarding or rigidity. Bowel sounds were heard. Central Nervous System: Alert and was moving all 4 extremities. Examination of the lower extremities revealed no pedal edema. HEENT: Atraumatic, normocephalic. Pupils were equal and reacting to light. On examination of her neck, trachea was midline. There was no lymphadenopathy. HOME MEDICATIONS: Include diltiazem 120 mg a day, losartan 50 mg a day, spironolactone/hydrochlorothiazide, Toprol 25 a day, Lipitor 80 mg a day, ciprofloxacin for urinary tract infection in addition to Flagyl for urinary tract infection. ASSESSMENT AND PLAN: Ms. Manuela Osman is a 74-year-old, lady with a history of palpitations, gastroesophageal reflux disease, hypertension, thyroid nodule, and anxiety disorder. She was seen today with having had increasing episodes of palpitations this year. Came in with worsening palpitations. Was noted to be in atrial fibrillation with rapid ventricular rate. Currently in sinus rhythm. She has had a CT angiogram done couple of years back which did not reveal any evidence of ischemia. She has been ruled out for myocardial infarction by cardiac enzymes. Her thyroid profile was normal. Potassium was 3.3 which has been corrected. Otherwise, no significant electrolyte imbalance. RECOMMENDATIONS: 1. This is the first diagnosis of atrial fibrillation. She has had frequent palpitations as mentioned above. Given this, we will put her on flecainide 100 mg twice daily. 2. For hypertension, she has had problems with heart rate issues and hypertension and anxiety disorder. I am not sure whether all this is related to the palpitations which she has, which triggers her anxiety episode. Regardless, for hypertension, we will continue with the losartan and Aldactazide which she is on. I will discontinue the diltiazem, leave her on the metoprolol 25 mg. I am starting her on flecainide. 3. We will get an echocardiogram to assess cardiac and valvular function. 4. As far as anticoagulation therapy is concerned, I had a detailed discussion with the patient. We will start her on Eliquis for stroke prophylaxis. She has an elevated CHADS2-VASc score. Eliquis 5 mg to be taken twice daily. She has been treated for a urinary tract infection. We will check a UA. If positive, we will defer further treatment length to the hospitalist's service. She has had these antibiotics for 5 days. Thank you for the consult. cc: Emmett Pineda MD
[2019-12-31] MEDS: FISH OIL CONCENTRATE PO SCH (12:44)
[2019-12-31] MEDS: COZAAR PO SCH (12:45)
[2019-12-31] MEDS: MAGNESIUM SULFATE 2 GM/S.W.I. 2 GM/50 ML IVPB IV SCH ×2 (12:45→16:07)
[2019-12-31] MEDS: TAMBOCOR PO SCH ×3 (12:45→19:59)
--- NOTE | 2019-12-31 12:51 | Diag Imaging Result Doc PS360 ---
EXAM: ABDOMEN FLAT/UPRIGHT INDICATION: abd pain TECHNIQUE: 2 views COMPARISON: None. FINDINGS: There are unremarkable bowel gas and stool patterns. There is no obstructive bowel pattern. There is no evidence of large volume free abdominal gas. There is no evidence of organomegaly. IMPRESSION: No evidence of acute pathology by plain radiograph. Electronically signed by Que Calle 12/31/2019 12:49 PM
[2019-12-31 13:05] LABS: URINE SOURCE CLEAN CATCH
[2019-12-31 13:41] LABS: BILIRUBIN URINE NEGATIVE (NEGATIVE); BLOOD URINE NEGATIVE (NEGATIVE); COLOR YELLOW; GLUCOSE URINE NEGATIVE (NEGATIVE); KETONE URINE 10 mg/dL (NEGATIVE); LEUKOCYTES URINE NEGATIVE (NEGATIVE); NITRITE URINE NEGATIVE (NEGATIVE); PH URINE 5.5; PROTEIN URINE TRACE mg/dL (NEGATIVE); SP GRAVITY URINE 1.019; TURBIDITY URINE CLEAR (CLEAR); UR EPITHELIAL CELLS <10 /HPF (<10); URINE BACTERIA NEGATIVE /HPF; URINE RBC <10 /HPF (<10); URINE WBC <10 /HPF (<10); UROBILINOGEN URINE NORMAL (NORMAL)
--- NOTE | 2019-12-31 13:59 | HISTORY AND PHYSICAL ---
ADDENDUM: I agree with most comments of history, physical, assessment and plan. In brief, Ms. Osman is a 74-year-old, lady with past medical history of essential hypertension, thyroid nodule, chronic GERD, hyperlipidemia, and palpitations, who comes in with chief complaints of weakness and palpitations of about several days' duration. The patient has had intermittent history of palpitations, and was seeing a senior java software developer outpatient, but was never diagnosed with atrial fibrillation. In the emergency room, she was found to have a heart rate of 144, with a blood pressure of 144/80. Initial EKG was suggestive of atrial fibrillation with rapid ventricular rate. ER physician had given her intravenous diltiazem and a dose of therapeutic enoxaparin, and hospitalist team was consulted for further management. Of note, the patient has been having intermittent gastrointestinal disturbance in the form of left lower quadrant abdominal discomfort since the last several weeks, and was recently started on oral antibiotics. She has completed a 5-day course of it. SUBJECTIVE: At the time of my evaluation, she denies any chest pain. She denies any shortness of breath. Her palpitation has improved. She denies any nausea or vomiting. REVIEW OF SYSTEMS: Positive for left lower quadrant discomfort. Negative for diarrhea. Negative for constipation. Negative for hematochezia or melena. PHYSICAL EXAMINATION: VITAL SIGNS: Temperature 97.9 degrees, pulse 71, respiratory rate 17, blood pressure 126/64, she is saturating 100% on room air. GENERAL: Not in acute distress. HEENT: Oral cavity is moist. LUNGS: Air entry bilaterally equal. No wheeze, rhonchi, or crackles. CARDIOVASCULAR: S1, S2 normal. Regular. No murmur or gallop. ABDOMEN: Soft, nontender. Active bowel sounds. EXTREMITIES: She has mild bilateral lower extremity edema at the level of ankles. NEUROLOGIC: She is alert and oriented x3. LABORATORY DATA: WBC of 5.8, hemoglobin 13.2, platelets 202,000. Potassium 3.3, creatinine of 1. MICROBIOLOGY: No positive microbiological data. IMAGING: Chest x-ray on presentation did not have any pneumonia. EKG had atrial fibrillation with rapid ventricular response. ASSESSMENT AND PLAN: 1. Atrial fibrillation with rapid ventricular response. Her intermittent episodes of palpitation at home could be related to it, though there was no documented electrocardiogram evidence of it. I will continue her home metoprolol extended-release, and stop intravenous diltiazem since she is in current normal sinus rhythm. In the future, I may consider increasing the metoprolol dose. I will consider starting her on anticoagulation after discussion with Cardiology. 2. Abdominal discomfort, being worked up outpatient. I discussed with her about differential diagnosis. I was informed by the patient that her next colonoscopy would be due 4 or 5 years later. I suggested her to have a discussion with outpatient provider about getting a CT scan of abdomen and pelvis. For now, I will get the abdominal x-ray to rule out constipation or any other obvious structural abnormalities. She does not have fever, leukocytosis, rebound, or rigidity to suggest acute abdomen. 3. Others. I will continue home hydrochlorothiazide, spironolactone, losartan for essential hypertension; atorvastatin for hyperlipidemia; buspirone for anxiety; calcium carbonate and vitamin B12; omega-3 fatty acids; omeprazole for chronic gastroesophageal reflux disease. I will replete her potassium and magnesium for hypokalemia and hypomagnesemia respectively, and monitor her in PVC. I allowed the patient to ask questions related to atrial fibrillation and abdominal discomfort. We discussed about different mechanism of atrial fibrillation, risk of stroke, risk of bleeding. I answered all of her questions. cc: Luis Angel Goldsmith MD
--- NOTE | 2019-12-31 19:39 | ECHO REPORT ---
ORDER DATE: 12/31/2019 INDICATION: A 74-year-old female with atrial fibrillation. M-MODE MEASUREMENTS: Left ventricle end diastole: 4.0. Left ventricle end systole: 2.5. Posterior wall: 0.8. Interventricular septum: 0.8. Left atrium: 3/0. Aortic diameter: 3.3. SUMMARY OF 2-DIMENSIONAL IMAGIN. Left ventricular function is normal. Ejection fraction is 70% to 75%. There is no wall motion abnormality noted. 2. The right ventricle appears to be slightly prominent. 3. The aortic valve looks normal. Color flow mapping shows a mild degree of regurgitation. 4. The mitral valve shows a mild degree of regurgitation. 5. Pulse wave Doppler of mitral inflow shows normal E/A ratio. The patient is in sinus rhythm. 6. Tissue Doppler of septal and lateral mitral annulus averages 9 cm. There is no diastolic dysfunction. 7. The left atrium appears to be within normal range. 8. The right-sided chambers are normal. 9. The tricuspid valve shows a mild degree of regurgitation. Pulmonary pressure is estimated at 39 mmHg. 10.There is no pericardial effusion, no mass, and no thrombus. 11.Pulse wave Doppler of pulmonary venous flow is normal. SUMMARY: This study shows: 1. Excellent left ventricular systolic function. 2. Mild degree of aortic, mitral and tricuspid regurgitation. 3. Pulmonary pressure 39 mmHg. 4. No diastolic dysfunction. Clinical correlation recommended. cc: MD Riana Young CRNP
[2019-12-31] MEDS: BUSPAR PO SCH ×2 (19:55→19:59)
[2019-12-31] MEDS: ELIQUIS PO SCH ×2 (19:55→19:59)
[2019-12-31] MEDS: LIPITOR PO SCH ×2 (19:55→19:59)
[2019-12-31] MEDS ORDERED: LOVENOX SUBQ SCH (21:00)
[2020-01-01] MEDS: PRILOSEC PO SCH (05:59)
[2020-01-01 06:16] LABS: BASO# 0.02 X1000 (0.0-0.2); BASO% 0.5 % (0.0-0.8); EOS# 0.11 X1000 (0.0-0.7); EOS% 2.5 % (0.0-10.0); HEMATOCRIT 33.5 % (37.0-47.0); HEMOGLOBIN 11.1 g/dL (12.0-16.0); LYMPH# 2.36 X1000 (1.2-3.4); LYMPH% 53.3 % (20.5-51.1); MCH 31.4 PG (27-31); MCHC 33.1 g/dL (33-37); MCV 94.6 FL (81-99); MONO# 0.41 X1000 (0.11-0.59); MONO% 9.3 % (1.7-9.3); MPV 10.4 FL (7.4-10.4); NEUT# 1.53 X1000 (1.4-6.5); NEUT% 34.4 % (42.2-75.2); PLT 189 X1000 (130-400); RBC 3.54 XMIL (4.2-5.4); RDW 13.2 % (11.5-14.5); WBC 4.43 X1000 (4.8-10.8)
[2020-01-01 06:55] LABS: AGAP 7; ALB/GLOB RATIO 1.5; ALBUMIN 3.5 g/dL (3.5-5.0); ALKALINE PHOSPHATASE 48 U/L (32-104); BUN 17 mg/dL (8-22); CALCIUM 8.8 mg/dL (8.8-10.2); CHLORIDE 105 mmol/L (98-107); COSMO 275; CREATININE 0.8 mg/dL (0.5-0.9); ESTIMATED GFR > 60; GLUCOSE 99 mg/dL (70-104); GOT 22 U/L (10-30); GPT 14 U/L (10-36); MAGNESIUM 2.5 mg/dL (1.5-2.7); POTASSIUM 4.5 mmol/L (3.5-5.1); SODIUM 137 mmol/L (136-145); TCO2 25 mmol/L (25-35); TOTAL BILIRUBIN 0.37 mg/dL (0.20-1.00); TOTAL PROTEIN 5.8 g/dL (6.3-8.3)
--- NOTE | 2020-01-01 07:38 | EKG Report ---
Test Performed on : 01/01/2020 06:19:09 AM Test Reason : afib Blood Pressure : / mmHG Vent. Rate : 062 BPM Atrial Rate : 062 BPM P-R Int : 210 ms QRS Dur : 102 ms QT Int : 422 ms P-R-T Axes : 083 052 079 degrees QTc Int : 428 ms Sinus rhythm. with sinus arrhythmia. with 1st degree AV block. Otherwise normal ECG When compared with ECG of 31-DEC-2019 10:00, (Unconfirmed) No significant change was found Confirmed by Parag Ontiveros MD ([id number]) on 01/01/2020 3:55:28 PM
[2020-01-01] MEDS: FLAGYL PO SCH ×2 (08:21→20:21)
[2020-01-01] MEDS: CIPRO PO SCH ×2 (08:21→20:19)
[2020-01-01] MEDS: ELIQUIS PO SCH ×2 (08:22→20:20)
[2020-01-01] MEDS: FISH OIL CONCENTRATE PO SCH (08:22)
[2020-01-01] MEDS: VITAMIN B-12 PO SCH (08:22)
[2020-01-01] MEDS: TOPROL XL PO SCH (08:22)
[2020-01-01] MEDS: COZAAR PO SCH (08:22)
[2020-01-01] MEDS: ALDACTAZIDE 25/25 PO SCH (08:22)
[2020-01-01] MEDS: CALTRATE 600 PO SCH (08:22)
[2020-01-01] MEDS: TAMBOCOR PO SCH ×2 (08:22→20:20)
[2020-01-01] MEDS: BUSPAR PO SCH ×2 (08:22→20:20)
--- NOTE | 2020-01-01 09:44 | PROGRESS NOTE ---
DATE: 01/01/2020 INTERVAL HISTORY: No acute events overnight. SUBJECTIVE: Ms Osman denies any palpitation. Her abdominal x-ray was unremarkable. VITAL SIGNS: Temperature 97.7 degrees, pulse 64, respiratory rate 16, blood pressure 142/67, saturating 99% on room air. PHYSICAL EXAMINATION: General: Not in acute distress. HEENT: Oral cavity is moist. Lungs: Air entry bilaterally equal. No wheeze, rhonchi or crackles. Cardiovascular: S1, S2 normal. No murmur, rub or gallop. Abdomen: Soft, nontender. Extremities: No lower extremity edema. Neurologic: She is alert and oriented x3. TELEMETRY: Normal sinus rhythm. LABORATORY DATA: Suggestive of hemoglobin of 11.1, platelet 189,000. Hypokalemia has resolved with potassium of 4.5. Her magnesium is 2.5. MICROBIOLOGY: No microbiological data. IMAGING: Echocardiogram had ejection fraction of 70 to 75 percent with normal wall motion. Abdominal x-ray did not have any evidence of acute pathology. Electrocardiogram this morning had sinus rhythm with sinus arrhythmia and first-degree AV block. ASSESSMENT AND PLAN: 1. Atrial fibrillation with rapid ventricular response. 2. Abdominal discomfort, being worked up outpatient. 3. Essential hypertension. 4. Anxiety. 5. Anemia with positive fecal occult blood likely due to acute GI bleeding. PLAN: 1. Continue flecainide and metoprolol. She is on apixaban for anticoagulation. 2. Continue home Ciprofloxacin and Flagyl and outpatient regular physician followup for abdominal discomfort and weight loss. 3. Start on IV PPI BID and follow up CBC. Depending on her course, I would consider CT scan of the abdomen and outpatient GI evaluation. 3. Continue home spironolactone, hydrochlorothiazide and losartan for essential hypertension. 4. The patient appears to be medically stable. I will appreciate Cardiology recommendation about discharge planning. I discussed the plan of care with Ms. Osman. All of her questions have been answered. cc: Luis Angel Goldsmith MD MTDD
[2020-01-01] MEDS ORDERED: SODIUM CHLORIDE 0.9% INJ SCH (16:30)
[2020-01-01] MEDS: PROTONIX IV SCH (16:55)
[2020-01-01] MEDS: LIPITOR PO SCH (20:20)
[2020-01-02] MEDS: PROTONIX IV SCH (05:28)
[2020-01-02 06:25] LABS: BASO# 0.02 X1000 (0.0-0.2); BASO% 0.4 % (0.0-0.8); EOS# 0.07 X1000 (0.0-0.7); EOS% 1.5 % (0.0-10.0); HEMATOCRIT 36.1 % (37.0-47.0); HEMOGLOBIN 11.8 g/dL (12.0-16.0); LYMPH# 1.86 X1000 (1.2-3.4); LYMPH% 39.1 % (20.5-51.1); MCH 30.6 PG (27-31); MCHC 32.7 g/dL (33-37); MCV 93.8 FL (81-99); MONO# 0.43 X1000 (0.11-0.59); MPV 10.4 FL (7.4-10.4); NEUT# 2.38 X1000 (1.4-6.5); PLT 207 X1000 (130-400); RBC 3.85 XMIL (4.2-5.4); RDW 13.1 % (11.5-14.5); WBC 4.76 X1000 (4.8-10.8)
[2020-01-02] MEDS: FLAGYL PO SCH (08:54)
[2020-01-02] MEDS: FISH OIL CONCENTRATE PO SCH (08:55)
[2020-01-02] MEDS: CALTRATE 600 PO SCH (08:55)
[2020-01-02] MEDS: CIPRO PO SCH (08:55)
[2020-01-02] MEDS: ELIQUIS PO SCH (08:56)
[2020-01-02] MEDS: TOPROL XL PO SCH (08:56)
[2020-01-02] MEDS: VITAMIN B-12 PO SCH (08:56)
[2020-01-02] MEDS: ALDACTAZIDE 25/25 PO SCH (08:56)
[2020-01-02] MEDS: BUSPAR PO SCH (08:57)
[2020-01-02] MEDS: COZAAR PO SCH (08:58)
[2020-01-02] MEDS: TAMBOCOR PO SCH (08:58)
--- NOTE | 2020-01-02 08:58 | Diag Imaging Result Doc PS360 ---
CT ABD/PELVIS W/IV CONT ONLY - 01/02/2020 INDICATION: LLQ pain with blood in stool. COMPARISON: None FINDINGS: The lung bases are clear and the heart size is normal. There are several benign cysts in the liver. Otherwise all abdominal organs are normal. No free air, free fluid, or lymphadenopathy. There is mild constipation. No bowel obstruction or inflammation. Uterus is absent. Urinary bladder and rectum are normal. Bones are intact and well mineralized. IMPRESSION: Mild constipation. Otherwise no acute disease. This exam was performed using automated exposure control, adjustment of mA or kV according to patient size, and/or use of iterative reconstruction technique Electronically signed by Jasson Levin 01/02/2020 8:55 AM
--- NOTE | 2020-01-02 11:05 | PROGRESS NOTE ---
DATE: 01/02/2020 INTERVAL HISTORY: No acute events overnight. Ms. Osman had a positive fecal occult blood test. She was started on IV Protonix b.i.d. A CT scan of the abdomen and pelvis was obtained, which was unremarkable. SUBJECTIVE: Ms. Osman is feeling good. She denies chest pain, shortness of breath, nausea, vomiting, and abdominal pain. She states that she has not had a bowel movement today. Yesterday, her bowels did look dark brown. She denies noticing any blood. She states when she wiped her stool, it was yellow. VITALS: Temperature 97 degrees, pulse 80, respiratory rate 17, blood pressure 127/67, saturating 99% on room air. PHYSICAL EXAMINATION: Ms. Osman is not in acute distress. Oral cavity is moist. Air entry bilaterally equal. No wheeze, rhonchi, or crackles. S1, S2 normal. No murmur, rub, or gallop. Abdomen: Soft, nontender. No lower extremity edema. She is alert and oriented x3. LABS: Suggestive of hemoglobin of 11.8, platelet count 207,000. No microbiology. Stool occult blood test was positive. CT scan of the abdomen and pelvis had constipation, otherwise no acute disease. ASSESSMENT AND PLAN: 1. Atrial fibrillation with rapid ventricular response, now resolved. Continue flecainide and metoprolol succinate. I will stop Eliquis as per my discussion with cardiology. 2. Acute gastrointestinal bleed. This happened after the patient was started on Eliquis. However, no active gastrointestinal bleed. Eliquis has been held. CT scan of the abdomen and pelvis was unremarkable. As per my discussion with cardiology team, I will consult gastroenterology. 3. Others. Continue atorvastatin for hyperlipidemia; losartan for essential hypertension; ciprofloxacin and metronidazole that was started outpatient by her regular provider, though there was no evidence of diverticulitis. 4. Disposition. The patient is medically ready otherwise for discharge. However, as per my discussion with cardiology team, I will await gastroenterology's recommendations to see if she needs inpatient intervention for her gastrointestinal bleed. Plan of care discussed with Ms. Osman. Her questions have been answered. cc: Luis Angel Goldsmith MD
[2020-01-02 11:45] VITALS: BP 109/59
--- NOTE | 2020-01-02 14:07 | DISCHARGE SUMMARY ---
ADMISSION DATE: 12/31/2019 DISCHARGE DATE: 01/02/2020 DISCHARGE DISPOSITION: Home. DISCHARGE CONDITION: Hemodynamically stable. Her heart rhythm is normal sinus. She has not had overt GI bleed. Her Eliquis was discontinued. Gastroenterology team had evaluated and is pending formal recommendation but I have been conveyed the message that the patient was okay to be discharged from their perspective. DISCHARGE DIAGNOSES: 1. Atrial fibrillation with rapid ventricular response. 2. Acute occult gastrointestinal bleed while on Eliquis. 3. Mild acute blood loss anemia. 4. Hypokalemia. OTHER DIAGNOSES: 1. History of paroxysmal palpitations. 2. Essential hypertension. 3. Anxiety. 4. History of chronic gastroesophageal reflux disease. DISCHARGE MEDICATIONS: 1. Buspirone 5 mg b.i.d. 2. Calcium carbonate 600 mg daily. 3. [place]-3 fatty acids 4 capsules daily. 4. Atorvastatin 80 mg daily. 5. Losartan 50 mg daily. 6. Metoprolol succinate 25 mg extended release 1 tablet daily. 7. Omeprazole 40 mg daily. 8. Hydrochlorothiazide/spironolactone 25/25 mg tablet 1 tablet daily. 9. Vitamin B12 at 1000 mg daily. 10. Flecainide 100 mg b.i.d. (90 tablets with 1 refill has been prescribed). 11. Her ciprofloxacin and metronidazole have been discontinued considering unremarkable CT scan of abdomen and pelvis as well as potential QT prolonging interaction with flecainide. VITALS: At the time of discharge, temperature of 97.5 degrees, pulse 71, respiratory rate 17, blood pressure 109/59, saturating 99% room air. PHYSICAL EXAMINATION: At the time of discharge, she is not in acute distress. She is in normal sinus rhythm. Air entry bilaterally equal. No wheeze, rhonchi, or crackles. S1, S2 normal. No murmur, rub, or gallop. Abdomen: Soft, nontender. No lower extremity edema. She is alert and oriented x3. LABS: At the time of hospital admission and discharge, WBC 4.7. Her hemoglobin on presentation was 13.2 which had dropped to 11.1 after starting Eliquis, which improved to 11.8 at the time of discharge without any intervention. Platelets are 207,000. Potassium improved from 3.3 to 4.5, BUN is 17, creatinine 0.8. Urinalysis is unremarkable. No microbiological data except stool occult blood test which was positive. IMAGING: During hospital admission, chest x-ray on presentation did not have acute cardiopulmonary process. Echocardiogram had an ejection fraction of 70 to 75 percent without mitral valvular stenosis. The pulmonary pressure was 39 mmHg. No diastolic dysfunction. Abdomen and pelvis CT on 01/02/2020 has mild constipation, otherwise no acute disease. Electrocardiogram on 12/31/2019 had atrial fibrillation with rapid ventricular response. Electrocardiogram 24 hours later was normal sinus rhythm with sinus arrhythmia. HOSPITAL COURSE SUMMARY: Ms. Osman is a 74-year-old, lady with a past medical history of paroxysmal palpitations, who was seeing a protection chief industrial plant as outpatient and was started on Cardizem. Came in with chief complaints of palpitations and weakness of about several days' duration. In the emergency room, she was found to have a heart rate of 144 and blood pressure of 144/80. An EKG was suggestive of atrial fibrillation with rapid ventricular response. She was given intravenous diltiazem bolus and a therapeutic dose of enoxaparin. The hospitalist team was consulted for further management. The patient did not have any chest pain or shortness of breath on presentation, and her troponin was less than 20. The patient was started on her home extended-release metoprolol and, in fact, after intravenous diltiazem bolus, her heart rhythm had become normal sinus. Bargain Table Clerk was consulted, and patient was started on flecainide and Eliquis, and patient remained in normal sinus rhythm throughout the hospital course. However, on Eliquis, she had complained of dark colored stool so fecal occult blood test was performed which was positive, so her Eliquis was held. She was started on intravenous Protonix and GI was consulted. Twenty-four hours after this event, the patient had reported normal looking brown stool and she did not have any obvious overt GI bleed. GI team had recommended outpatient followup. The patient was deemed appropriate for discharge without any anticoagulation. She was advised to have outpatient followup with Dr. Figueroa within the next 2 to 3 weeks and have a discussion about starting long-term anticoagulation for primary cerebrovascular accident prophylaxis as appropriate. Noticeably, the patient was on ciprofloxacin and metronidazole outpatient for her abdominal discomfort. CT scan of the abdomen and pelvis performed did not have any acute diverticulitis or obvious colonic mass, and considering ciprofloxacin had potentially QT interval prolonging interaction with flecainide, it was decided to discontinue antibiotics and have outpatient followup with regular provider. Thirty minutes were spent discharging the patient. Plan of care was discussed with the patient. She was allowed to ask questions. All of her questions were satisfactorily answered. cc: Luis Angel Goldsmith MD MTDNaomi
--- NOTE | 2020-01-02 16:38 | GASTROENTEROLOGY CONSULTATION ---
DATE: 01/02/2020 REASON FOR CONSULTATION: Possible GI bleed, on anticoagulation. HISTORY OF PRESENT ILLNESS: This is a 74-year-old female who we have not seen through our practice before. The patient states she had seen possibly Dr. Javier. She believes maybe her last colonoscopy was around five years ago. She has not had a followup recently with a [employer] commerce consultant. She came into the hospital for heart palpitations. Has a history of atrial fibrillation. She has had recent problems with bradycardia. She follows with Dr. Arias as her primary physician. I believe she follows with Dr. Figueroa as her primary senior windows administrator. She has been seen by Dr. Pineda during the hospitalization. They have been working with her medications. She did receive Lovenox and her Eliquis, I believe, was held. The patient had reported having recent poor appetite and has noticed some dark stools. She has had a positive Hemoccult test here in the hospital. She reports occasional lower abdominal pain. Sometimes she will have diarrhea or urge or pressure to have a bowel movement. She states she has lost about five to six pounds. She does report occasional heartburn and reflux. She was on Prilosec for years and was changed to Protonix. She states she had recently taken some antibiotics by Dr. Arias after having some stomach issues and was treated for possible infection. Patient denies any bright red blood in the stool. She is not sure what her last colonoscopy showed. PAST MEDICAL HISTORY: 1. Paroxysmal palpitations/atrial fibrillation. 2. Gastroesophageal reflux disease. 3. Hypertension. 4. Hyperlipidemia. 5. Anxiety/panic attacks. 6. History of thyroid nodule. PAST SURGICAL HISTORY: History of C-sections x3, hemorrhoidectomy, hysterectomy, history of colonoscopy maybe five years ago. ALLERGIES: Garlic causing a rash. Lisinopril, dry cough. Sulfonamide antibiotics, rash. HOME MEDICATIONS: Lipitor 80 mg daily, BuSpar 5 mg twice a day, calcium 600 mg daily, vitamin B12 1000 mg daily, flecainide 100 mg twice a day, losartan 50 mg daily, metoprolol one daily, fish oil four capsules daily, omeprazole 40 mg daily, spironolactone one tablet daily. SOCIAL HISTORY: Denies tobacco or alcohol use. She is with three children. 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 FAMILY HISTORY: Mother had diabetes and heart disease. Father from tuberculosis and pneumonia. REVIEW OF SYSTEMS: Per history of present illness. The patient currently denies chest pain, shortness of breath or cough. No reported dysuria. She has had some poor appetite, weight loss, and has noticed some dark stools with lower abdominal pain. PHYSICAL EXAMINATION: Vital Signs: Temperature 97.5 degrees, pulse 71, respirations 17, blood pressure 109/59. General: Patient is awake and alert, in no acute distress. Other Physical Exam: Unremarkable. DIAGNOSTIC RESULTS: Laboratory: Hematology: WBC 4.76, hemoglobin 11.8, hematocrit 36.1, MCV 93.8, platelets 207,000. Chemistry: Sodium 137, potassium 4.5, chloride 105, CO2 25, BUN 17, creatinine 0.8, glucose 99, calcium 8.8, magnesium 2.5, total bilirubin 0.37, AST 22, ALT 14, alkaline phosphatase 48. Imaging: Abdominal pelvis CT scan showed mild constipation. Abdominal x-ray showed no evidence of acute pathology. ASSESSMENT AND PLAN: 1. Atrial fibrillation with rapid ventricular response. The patient has been seen by Cardiology. I believe her Eliquis has been placed on hold now. 2. Acute gastrointestinal bleeding. Patient has had some dark stools. She had Hemoccult- positive stool with a slight drop in her hemoglobin and hematocrit today. Her hemoglobin and hematocrit is 11.8 and 36.1. She has not required blood transfusions. PLAN: Patient has been seen by Cardiology. The patient had been taking Eliquis. We will hold that for now and anticipate EGD as an outpatient. Recommend to take her Protonix twice a day. Avoid NSAIDs. We will call and schedule her EGD as an outpatient. Further plans to be made according to findings. Patient was also seen by Dr. Norman. Thank you for this consultation. Dictated by SHAWNA Bales for Ab Norman MD cc: SHAWNA Saeed MD
== END 2020-01-02 14:35 | disposition home or self-care (01) | DRG 309 ==
LOC: ED 07:39 → 2N 09:50
PROVIDERS: ATTEND Internal Medicine